=== PATIENT | male | born 1955 | race Caucasian/White ===

== ENCOUNTER 2018-01-21 08:12 | Outpatient (CLI) | payer OTHER | END 2018-01-21 14:07 | disposition home or self-care (01) | LOC: SONOGRAMA 08:12 | DX: K76.0 Fatty (change of) liver, not elsewhere classified (principal) ==

== ENCOUNTER 2019-05-15 16:50 | Emergency (ER) | payer OTHER ==
[~2019-05-15] VITALS: Ht 162.6 cm; Wt 75.3 kg
[2019-05-15] MEDS ORDERED: HYDRALAZINE HCL50 MG (16:59)
[2019-05-15] MEDS ORDERED: CARVEDILOL25 MG (17:00)
[2019-05-15] MEDS ORDERED: ONGLYZA5 MG (17:00)
[2019-05-15] MEDS ORDERED: METFORMIN HCL1000 MG (17:01)
== END 2019-05-15 18:17 | disposition home or self-care (01) ==
LOC: ER 16:50
DX: H10.11 Acute atopic conjunctivitis, right eye (principal); H11.151 Pinguecula, right eye

== ENCOUNTER 2020-05-21 07:40 | Outpatient (CLI) | payer OTHER ==
[~2020-05-21 07:40] MED LIST: CARVEDILOL25 MG; HYDRALAZINE HCL50 MG; METFORMIN HCL1000 MG; ONGLYZA5 MG
== END 2020-05-21 07:49 | disposition home or self-care (01) ==
LOC: SONOGRAMA 07:40 → MAMO-SONO 07:45 → SONOGRAMA 07:49
DX: K76.0 Fatty (change of) liver, not elsewhere classified (principal); Z85.07 Personal history of malignant neoplasm of pancreas

== ENCOUNTER 2022-03-26 07:12 | Outpatient (CLI) | payer OTHER | END 2022-03-26 07:14 | disposition home or self-care (01) | LOC: SONOGRAMA 07:12 | DX: K76.0 Fatty (change of) liver, not elsewhere classified (principal) ==

== ENCOUNTER 2022-09-02 13:51 | Emergency (ER) | payer OTHER ==
[~2022-09-02] VITALS: Ht 162.6 cm; Wt 72.6 kg
[2022-09-02] MEDS ORDERED: AZELASTIN-FLUTI23 GM NASAL (17:04)
[2022-09-02] MEDS ORDERED: AZELASTINE137 MCG/0. NASAL (17:06)
[2022-09-02] MEDS ORDERED: ZYRTEC10 M3 PO (17:06)
== END 2022-09-02 19:37 | disposition home or self-care (01) ==
LOC: ER 13:51
DX: J06.9 Acute upper respiratory infection, unspecified (principal); J30.9 Allergic rhinitis, unspecified; I10 Essential (primary) hypertension; E11.9 Type 2 diabetes mellitus without complications

== ENCOUNTER → 2025-05-04 06:53 | Outpatient (CLI) | payer OTHER ==
[~2025-05-04 06:53] MED LIST changes: +AZELASTIN-FLUTI23 GM NASAL; +AZELASTINE137 MCG/0. NASAL; +ZYRTEC10 M3 PO
[2025-05-04 07:48] LABS: BASO % 0.8 % (0.1-1.2); EOS # 0.35 (0.04-0.54); EOS % 5.9 % (0.7-7.0); LYMPH # 1.66 (1.18-3.74); LYMPH % 28.1 % (19.3-53.1); MEAN PLATELET VOLUME 9.00 fl (9.4-12.4); MONO # 0.89 (0.24-0.82); NEUT # 2.93 (1.56-6.13); NEUT % 49.8 % (34.0-71.1); RED CELL DISTRIBUTION WIDTH 13.5 % (11.6-14.4)
[2025-05-04 07:58] LABS: MONO % 15.1 % (4.7-12.5)
[2025-05-04 08:47] LABS: ALT/SGPT 27.0 U/L (12-78); AST/SGOT 18.0 U/L (15-37); BILIRUBIN TOTAL 0.35 mg/dL (0.3-1.2); BUN CREA RATIO 19.0 (7.0-25.0); CHOL HDL RATIO 2.3 (0-5.0); CREATININE SERUM 0.83 mg/dL (0.70-1.30); GFR 92.13; GLOBULINA 2.9 G/DL (2.4-3.5); GLUCOSE FASTING 108.0 mg/dL (65-100); HDL 62.0 mg/dl (40-60); LDL 46.0 mg/dl (0-130); OSMOLALITY SERUM 283.0 MOSM/KG (275-295); PROSTATIC SPECIFIC ANTIGEN 1.33 NG/ML (0.010-4.00); TSH 2.17 uIU/mL (0.358-3.74); VLDL 32.0 (0-39)
[2025-05-04 08:55] LABS: URINE APPEARANCE Clear; URINE BILIRRUBIN Negative (NEGATIVE); URINE BLOOD Negative; URINE COLOR Yellow; URINE GLUCOSE Negative (NEGATIVE); URINE KETONE Negative (NEGATIVE); URINE LEUKOCYTE Negative; URINE NITRATE Negative; URINE PROTEIN Negative (NEGATIVE); URINE UROBILINOGEN 0.2 E.U./dl
[2025-05-04 09:10] LABS: URINE BACTERIA 3.5 uL (0.0-1933); URINE CAST 0.00 uL (0.0-1.40); URINE EPITHELIAL CELLS 0.3 uL (0.0-38.8); URINE RBC 1.4 uL (0.0-20.8); URINE WBC 1.3 uL (0.0-23.2)
[2025-05-05 09:11] LABS: % FREE PSA 23.1 % (.)
== END | disposition home or self-care (01) ==
LOC: LAB 06:53
DX: E11.9 Type 2 diabetes mellitus without complications (principal); R30.0 Dysuria; D64.9 Anemia, unspecified; E78.5 Hyperlipidemia, unspecified; E03.9 Hypothyroidism, unspecified; E55.9 Vitamin D deficiency, unspecified; R97.20 Elevated prostate specific antigen [PSA]

== ENCOUNTER 2025-05-04 07:26 | Outpatient (CLI) | payer OTHER | END 2025-05-04 07:29 | disposition home or self-care (01) | LOC: SONOGRAMA 07:26 | DX: K76.0 Fatty (change of) liver, not elsewhere classified (principal) ==